=== PATIENT | female | born 1940 | race Caucasian/White ===

== ENCOUNTER → 2023-06-28 13:41 | Outpatient (REF) | payer MEDICARE, BC, SELFPAY | LOC: WDC 13:41 | PROVIDERS: ATTENDING PHYSICIAN Family Medicine | DX: Z78.0 Asymptomatic menopausal state (principal); Z12.31 Encounter for screening mammogram for malignant neoplasm of breast | CPT/HCPCS: 77063; 77067; 77080 ==

== ENCOUNTER → 2024-09-29 13:49 | Outpatient (REF) | payer MEDICARE, BC, SELFPAY | LOC: RAD 13:49 | PROVIDERS: ATTENDING PHYSICIAN Family Medicine | DX: M25.471 Effusion, right ankle (principal); M25.472 Effusion, left ankle | CPT/HCPCS: 73610; 76882 ==